=== PATIENT | male | born 1970 | race African-American/Black ===

== ENCOUNTER 2018-01-12 16:01 | Observation (INO) | payer OTHER ==
[~2018-01-12] VITALS: Ht 185.4 cm; Wt 97.0 kg
[2018-01-12 16:49] LABS: BASOPHIL (%) 1.1 % (0-1); BASOPHIL COUNT 0.1 K/uL (0-0.1); EOSINOPHIL (%) 1.1 % (0-5); EOSINOPHIL COUNT 0.1 K/uL (0-0.3); HEMATOCRIT 42.3 % (38.0-50.0); HEMOGLOBIN 14.5 G/DL (12.5-16.6); IMMATURE GRANULOCYTE (%) 0.5 % (0.0-0.7); LYMPHOCYTE (%) 15.4 % (15-42); LYMPHOCYTE COUNT 0.9 K/uL (1.0-2.8); MCH 28.8 PG (29.0-34.0); MCHC 34.3 G/DL (30.0-36.0); MCV 84.1 FL (86-99); MONOCYTE (%) 9.6 % (3-12); MONOCYTE COUNT 0.5 K/uL (0-0.8); NEUTROPHIL (%) 72.3 % (45-76); PLATELET COUNT 192 K/uL (156-360); RBC DIS.WIDTH-SD 48.4 % (39-53); RED BLOOD COUNT 5.03 M/uL (4.00-5.50); WHITE BLOOD COUNT 5.5 K/uL (4.1-10.2)
[2018-01-12 17:09] LABS: PTT 22.2 SEC (25-37)
[2018-01-12 17:10] LABS: ALBUMIN 4.6 g/dL (3.2-4.8); CHLORIDE 109 mEq/L (99-109); POTASSIUM 5.4 mEq/L (3.7-5.4); SODIUM 140 mEq/L (136-147)
[2018-01-12 17:13] LABS: GLUCOSE 84 mg/dL (70-99); TOTAL PROTEIN 7.5 g/dL (6.4-8.3)
[2018-01-12 17:15] LABS: TOTAL BILIRUBIN 0.8 mg/dL (0.0-1.0)
[2018-01-12 17:16] LABS: ALKALINE PHOSPHATASE 44 IU/L (3-129); CREATININE 1.5 mg/dL (0.6-1.3); GFR ESTIMATE (CALCULATED) > 59 mL/min/ (58.99-99999)
[2018-01-12 17:17] LABS: UREA NITROGEN (BUN) 16 mg/dL (9-23)
[2018-01-12 17:18] LABS: AST (GOT) 29 IU/L (2-34)
[2018-01-12 17:19] LABS: ALT (GPT) 46 IU/L (3-49)
[2018-01-12 20:09] LABS: APPEARANCE CLEAR ((CLEAR)); BILIRUBIN NEGATIVE; BLOOD NEGATIVE; COLOR YELLOW ((YELLOW)); GLUCOSE (STRIP) NEGATIVE; KETONES NEGATIVE; LEUKOCYTES NEGATIVE; NITRITE NEGATIVE; PROTEIN (STRIP) NEGATIVE; SPECIFIC GRAVITY 1.025 (1.000-1.030); UCUL ADDED? NO; UROBILINOGEN 0.2 MG/DL (0.2-1.0)
[2018-01-12] MEDS ORDERED: ZESTRIL40 MG PO (20:25)
[2018-01-12] MEDS ORDERED: DUONEB 2.5-0.5 M3 ML AEROSOL (20:27)
[2018-01-12] MEDS ORDERED: ADVIL,NUPRIN,M200 MG PO (20:28)
[2018-01-12 22:58] VITALS: BP 110/59
[2018-01-13 04:10] VITALS: BP 128/57
[2018-01-13 06:36] LABS: HEMATOCRIT 37.6 % (38.0-50.0); HEMOGLOBIN 12.7 G/DL (12.5-16.6); MCH 28.5 PG (29.0-34.0); MCHC 33.8 G/DL (30.0-36.0); MCV 84.3 FL (86-99); PLATELET COUNT 177 K/uL (156-360); RBC DIS.WIDTH-SD 48.6 % (39-53); RED BLOOD COUNT 4.46 M/uL (4.00-5.50); WHITE BLOOD COUNT 6.3 K/uL (4.1-10.2)
[2018-01-13 08:17] VITALS: BP 129/60
[2018-01-13 16:09] VITALS: BP 131/63
[2018-01-13 19:19] VITALS: BP 142/72
[2018-01-13 23:29] VITALS: BP 116/55
[2018-01-14 08:08] VITALS: BP 119/55
[2018-01-14] MEDS ORDERED: SILVADENE,SSD,T50 GM TP (11:21)
[2018-01-14] MEDS ORDERED: PERCOCET 5/31 TABLET PO (11:21)
== END 2018-01-14 15:11 | disposition home or self-care (01) ==
LOC: TRA 16:01 → EDOF 19:20 → 3EAST 19:20 → EDOF 19:20 → ENRESERV 19:25 → 3EAST 21:43
PROVIDERS: Emergency Medicine; Surgery
DX: S32.10XA Unspecified fracture of sacrum, initial encounter for closed fracture (principal); S62.392A Other fracture of third metacarpal bone, right hand, initial encounter for closed fracture; S01.112A Laceration without foreign body of left eyelid and periocular area, initial encounter; M25.562 Pain in left knee; M25.552 Pain in left hip; S50.812A Abrasion of left forearm, initial encounter; S00.81XA Abrasion of other part of head, initial encounter; S80.212A Abrasion, left knee, initial encounter; I10 Essential (primary) hypertension; F17.210 Nicotine dependence, cigarettes, uncomplicated; V29.88XA Motorcycle rider (driver) (passenger) injured in other specified transport accidents, initial encounter
CPT/HCPCS: 70450; 71260; 72125; 73130; 73590; 74177; 80053; 81003; 85025; 85027; 85610; 85730; 94640; 94799; 99281; 99284; G0378; G8978 GP CJ; G8979 GP CI; G8980 CJ; J2270; J2405; J3010; J7030; J7120; Q0169